=== PATIENT | female | born 2000 | race Two or more races ===

== ENCOUNTER → 2020-01-18 | Emergency (ER) | payer MEDICAID ==
[~2020-01-18] VITALS: Ht 154.9 cm; Wt 64.9 kg
[2020-01-18 15:18] LABS: Urine WBC None Seen /hpf (0 - 5)
[2020-01-18 15:49] LABS: Urine Bacteria NONE SEEN /hpf (None Seen); Urine Blood Negative /uL (Negative); Urine Specific Gravity 1.003 (1.001-1.035)
[2020-01-18 16:15] LABS: Basophils # (auto) 0 10 ^3/uL (0-0.2); Eosinophils # (auto) 0.1 10 ^3/uL (0-0.8); Hemoglobin 12.9 g/dL (12.2-16.2); Lymphocytes # (auto) 1.5 10 ^3/uL (0.4-5.4); Monocytes # (auto) 0.3 10 ^3/uL (0-1.3)
[2020-01-18 16:17] LABS: Basophils % (auto) 0.3 % (0.0-2.0); Eosinophils % (auto) 2.2 % (0.0-7.0); Lymphocytes % (auto) 36.5 % (10.0-50.0); Mean Corpuscular Hemoglobin 26.9 pg (28.0-32.0); Mean Corpuscular Hgb Conc. 32.1 g/dL (32.0-36.0); Mean Corpuscular Volume 83.9 fL (80.0-100.0); Monocytes % (auto) 7.2 % (0.0-12.0); Neutrophils # (auto) 2.3 10 ^3/uL (1.6-8.6); Neutrophils % (auto) 53.8 % (37.0-80.0); Nucleated Red Blood Cells % 0.1 %; Platelet Count (auto) 251 10^3/uL (140-450); Red Blood Cells 4.77 10^6/uL (4.0-5.20); Red Cell Distribution Width 14.8 % (11.8-14.3); White Blood Cell 4.2 10^3/uL (4.4-10.8)
[2020-01-18 16:38] LABS: Albumin 3.9 g/dL (3.4-5.0); BUN/Creatinine Ratio 10.1; Calcium 8.9 mg/dL (8.5-10.1); Potassium 3.8 mmol/L (3.5-5.1)
[2020-01-18 16:41] LABS: Bilirubin, Total 0.4 mg/dL (0.2-1.0); Total Protein 7.9 g/dL (6.4-8.2)
[2020-01-18 17:10] VITALS: BP 108/72
== END | disposition home or self-care (01) ==
LOC: EDUNIT# 14:59 → EDBD 14:59 → ER 14:59
DX: R10.31 Right lower quadrant pain (principal); R11.2 Nausea with vomiting, unspecified
CPT/HCPCS: 36415; 74176; 80053; 81001; 81025; 83690; 85025

== ENCOUNTER → 2020-06-18 | Emergency (ER) | payer MEDICAID ==
[~2020-06-18] VITALS: Ht 157.5 cm; Wt 70.3 kg
[2020-06-18 17:45] VITALS: BP 134/71
== END | disposition left against medical advice (07) ==
LOC: ER 17:41
DX: N89.8 Other specified noninflammatory disorders of vagina (principal); Z53.21 Procedure and treatment not carried out due to patient leaving prior to being seen by health care provider

== ENCOUNTER → 2021-12-06 | Outpatient (CLI) | payer MEDICAID ==
[2021-12-06 10:13] LABS: Alcohol, Urine < 3.0 mg/dL (0-10); Amphetamine Screen, Urine NEGATIVE (NEGATIVE); Barbiturate Scree,Urine NEGATIVE (NEGATIVE); Benzodiazephine Screen, Urine NEGATIVE (NEGATIVE); Cannabinoid Screen, Urine POSITIVE (NEGATIVE); Cocaine Screen, Urine NEGATIVE (NEGATIVE); Opiate Scree,Urine NEGATIVE (NEGATIVE); Phencyclidine Screen, Urine NEGATIVE (NEGATIVE)
[2021-12-06 10:38] LABS: Basophils # (auto) 0 10 ^3/uL (0-0.2); Basophils % (auto) 0.5 % (0.0-2.0); Eosinophils # (auto) 0.1 10 ^3/uL (0-0.8); Eosinophils % (auto) 2.9 % (0.0-7.0); Hematocrit 35.6 % (36.0-46.0); Hemoglobin 12.1 g/dL (12.2-16.2); Lymphocytes # (auto) 1.8 10 ^3/uL (0.4-5.4); Lymphocytes % (auto) 36.6 % (10.0-50.0); Mean Corpuscular Hemoglobin 29.4 pg (28.0-32.0); Mean Corpuscular Volume 86.4 fL (80.0-100.0); Monocytes # (auto) 0.3 10 ^3/uL (0-1.3); Monocytes % (auto) 6.9 % (0.0-12.0); Neutrophils # (auto) 2.6 10 ^3/uL (1.6-8.6); Neutrophils % (auto) 53.1 % (37.0-80.0); Nucleated Red Blood Cells % 0.1 %; Red Blood Cells 4.12 10^6/uL (4.0-5.20); Red Cell Distribution Width 16.2 % (11.8-14.3)
[2021-12-07 07:06] LABS: RPR Non Reactive (Non Reactive)
== END | disposition home or self-care (01) ==
LOC: LAB 08:38
PROVIDERS: ATTEND Obstetrics & Gynecology
DX: Z34.00 Encounter for supervision of normal first pregnancy, unspecified trimester (principal); Z31.430 Encounter of female for testing for genetic disease carrier status for procreative management; N39.0 Urinary tract infection, site not specified
CPT/HCPCS: 36415; 80307; 83036; 84112; 84144; 84702; 85025; 86592; 86703; 86762; 86850; 86900; 86901; 87086; 87340

== ENCOUNTER 2021-12-14 08:31 | Emergency (ER) | payer MEDICAID ==
[~2021-12-14] VITALS: Ht 154.9 cm; Wt 53.5 kg
[2021-12-14] MEDS ORDERED: METOCLOPRAMIDE HCL 5MG/ml INJ 2ml VIAL IV ONE (08:45)
[2021-12-14] MEDS ORDERED: LIDOCAINE VISCOUS 2% 15ML UD PO ONE (08:45)
[2021-12-14] MEDS ORDERED: FAMOTIDINE (10MG/ML) 2ML VL IV ONE (08:45)
[2021-12-14] MEDS ORDERED: PYRIDOXINE HCL 50 MG TAB PO SCH (08:45)
[2021-12-14] MEDS ORDERED: D5W/SOD CHLO 0.9% 1,000 ML IV ONE (08:45)
[2021-12-14] MEDS ORDERED: ALUM & MAG HYDROX-SIMETH LIQ(MAALOX) 30 ML PO ONE (08:45)
[2021-12-14 09:18] LABS: Basophils # (auto) 0 10 ^3/uL (0-0.2); Basophils % (auto) 0.4 % (0.0-2.0); Eosinophils # (auto) 0 10 ^3/uL (0-0.8); Eosinophils % (auto) 0.2 % (0.0-7.0); Hemoglobin 13.3 g/dL (12.2-16.2); Lymphocytes # (auto) 1.2 10 ^3/uL (0.4-5.4); Lymphocytes % (auto) 14.9 % (10.0-50.0); Mean Corpuscular Hemoglobin 28.7 pg (28.0-32.0); Mean Corpuscular Hgb Conc. 33.2 g/dL (32.0-36.0); Mean Corpuscular Volume 86.5 fL (80.0-100.0); Monocytes # (auto) 0.4 10 ^3/uL (0-1.3); Monocytes % (auto) 5.4 % (0.0-12.0); Neutrophils # (auto) 6.5 10 ^3/uL (1.6-8.6); Neutrophils % (auto) 79.1 % (37.0-80.0); Red Blood Cells 4.63 10^6/uL (4.0-5.20); Red Cell Distribution Width 15.8 % (11.8-14.3); White Blood Cell 8.2 10^3/uL (4.4-10.8)
[2021-12-14 09:45] LABS: Albumin 3.7 g/dL (3.4-5.0); BUN/Creatinine Ratio 19.2; Calcium 9.4 mg/dL (8.5-10.1)
[2021-12-14] MEDS ORDERED: cefTRIAXone 1GM/50ML D5W 50 ML IV ONE (09:45)
[2021-12-14 09:48] LABS: Bilirubin, Total 0.4 mg/dL (0.2-1.0); Total Protein 7.6 g/dL (6.4-8.2)
[2021-12-14 10:11] LABS: Urine Bacteria FEW /hpf (None Seen); Urine Blood Negative /uL (Negative); Urine Mucus FEW (None Seen); Urine Specific Gravity 1.039 (1.001-1.035); Urine WBC 18 /hpf (0 - 5)
[2021-12-14] MEDS ORDERED: POTASSIUM CHL 20MEQ/100ML 100 ML IV ONE (10:45)
[2021-12-14] MEDS ORDERED: POTASSIUM CHL 20 Meq TABLET PO ONE (10:45)
[2021-12-14] MEDS ORDERED: CEFP200T15 PO (13:12)
[2021-12-14 13:18] VITALS: BP 116/78
== END 2021-12-14 13:30 | disposition home or self-care (01) ==
LOC: ER 08:31
DX: O21.0 Mild hyperemesis gravidarum (principal); J45.909 Unspecified asthma, uncomplicated; Z3A.01 Less than 8 weeks gestation of pregnancy
CPT/HCPCS: 36415; 80053; 81001; 81025; 82010; 84702; 85025; 96361; 96365; 96375; 99285; J0696; J2765; J3480; J3490; J7040

== ENCOUNTER → 2022-03-30 | Outpatient (CLI) | payer MEDICAID ==
[~2022-03-30] MED LIST: CEFP200T15 PO
[2022-03-30 09:37] LABS: Basophils # (auto) 0 10 ^3/uL (0-0.2); Basophils % (auto) 0.2 % (0.0-2.0); Eosinophils # (auto) 0.1 10 ^3/uL (0-0.8); Eosinophils % (auto) 1.3 % (0.0-7.0); Hemoglobin 10.5 g/dL (12.2-16.2); Lymphocytes # (auto) 1.4 10 ^3/uL (0.4-5.4); Lymphocytes % (auto) 22.2 % (10.0-50.0); Mean Corpuscular Hemoglobin 29.5 pg (28.0-32.0); Mean Corpuscular Volume 89.3 fL (80.0-100.0); Monocytes # (auto) 0.3 10 ^3/uL (0-1.3); Monocytes % (auto) 5.6 % (0.0-12.0); Neutrophils # (auto) 4.3 10 ^3/uL (1.6-8.6); Neutrophils % (auto) 70.7 % (37.0-80.0); Nucleated Red Blood Cells % 0.1 %; Red Blood Cells 3.58 10^6/uL (4.0-5.20); Red Cell Distribution Width 13.1 % (11.8-14.3); White Blood Cell 6.1 10^3/uL (4.4-10.8)
== END | disposition home or self-care (01) ==
LOC: LAB 09:18
PROVIDERS: ATTEND Obstetrics & Gynecology
DX: O99.810 Abnormal glucose complicating pregnancy (principal); Z3A.00 Weeks of gestation of pregnancy not specified
CPT/HCPCS: 36415; 82951; 83036; 85025

== ENCOUNTER → 2022-05-30 | Outpatient (CLI) | payer MEDICAID ==
[~2022-05-30] MED LIST changes: +PREN-96 PO
[2022-05-30 08:32] LABS: Basophils # (auto) 0 10 ^3/uL (0-0.2); Basophils % (auto) 0.6 % (0.0-2.0); Eosinophils # (auto) 0.1 10 ^3/uL (0-0.8); Eosinophils % (auto) 1.6 % (0.0-7.0); Hematocrit 31.2 % (36.0-46.0); Hemoglobin 10.1 g/dL (12.2-16.2); Lymphocytes # (auto) 1.6 10 ^3/uL (0.4-5.4); Mean Corpuscular Hgb Conc. 32.5 g/dL (32.0-36.0); Monocytes # (auto) 0.5 10 ^3/uL (0-1.3); Monocytes % (auto) 7.8 % (0.0-12.0); Neutrophils # (auto) 3.6 10 ^3/uL (1.6-8.6); Nucleated Red Blood Cells % 0.1 %; Red Blood Cells 3.76 10^6/uL (4.0-5.20); Red Cell Distribution Width 14.1 % (11.8-14.3); White Blood Cell 5.8 10^3/uL (4.4-10.8)
[2022-05-31 08:07] LABS: RPR Non Reactive (Non Reactive)
== END | disposition home or self-care (01) ==
LOC: LAB 08:17
PROVIDERS: ATTEND Obstetrics & Gynecology
DX: Z34.00 Encounter for supervision of normal first pregnancy, unspecified trimester (principal); Z3A.00 Weeks of gestation of pregnancy not specified
CPT/HCPCS: 36415; 85025; 86592

== ENCOUNTER 2022-06-06 15:59 | Observation (INO) | payer MEDICAID ==
[~2022-06-06] VITALS: Ht 157.5 cm; Wt 65.8 kg
[~2022-06-06 15:59] MED LIST changes: -PREN-96 PO
[2022-06-06] MEDS ORDERED: PREN-96 PO (20:08)
== END 2022-06-06 20:54 | disposition home or self-care (01) ==
LOC: UNDOADMOB 15:59 → LDRP 15:59 → UNDODISOB 20:54
PROVIDERS: ADMIT Obstetrics & Gynecology; ATTEND Obstetrics & Gynecology
DX: O36.5930 Maternal care for other known or suspected poor fetal growth, third trimester, not applicable or unspecified (principal); O26.893 Other specified pregnancy related conditions, third trimester; N89.8 Other specified noninflammatory disorders of vagina; Z3A.37 37 weeks gestation of pregnancy
CPT/HCPCS: 59025; 76805; 76818; 81002; 94760; G0378

== ENCOUNTER 2022-06-09 16:57 | Observation (INO) | payer MEDICAID ==
[~2022-06-09 16:57] MED LIST changes: +PREN-96 PO
== END 2022-06-09 18:35 | disposition home or self-care (01) ==
LOC: LDRP 16:57
PROVIDERS: ADMIT Obstetrics & Gynecology; ATTEND Obstetrics & Gynecology
DX: O36.5930 Maternal care for other known or suspected poor fetal growth, third trimester, not applicable or unspecified (principal); Z3A.37 37 weeks gestation of pregnancy
CPT/HCPCS: 59025; 76818; 81002; 94760; G0378

== ENCOUNTER 2022-06-13 12:36 | Observation (INO) | payer MEDICAID ==
[~2022-06-13 12:36] MED LIST changes: -CEFP200T15 PO
== END 2022-06-13 17:27 | disposition home or self-care (01) ==
LOC: UNDOADMOB 16:18 → LDRP 16:18
PROVIDERS: ADMIT Obstetrics & Gynecology; ATTEND Obstetrics & Gynecology
DX: O36.5930 Maternal care for other known or suspected poor fetal growth, third trimester, not applicable or unspecified (principal); Z3A.38 38 weeks gestation of pregnancy
CPT/HCPCS: 59025; 76818; 81002; 94760; G0378

== ENCOUNTER 2022-06-17 16:45 | Observation (INO) | payer MEDICAID | END 2022-06-17 17:50 | disposition home or self-care (01) | LOC: LDRP 16:45 | PROVIDERS: ADMIT Obstetrics & Gynecology; ATTEND Obstetrics & Gynecology | DX: O36.5930 Maternal care for other known or suspected poor fetal growth, third trimester, not applicable or unspecified (principal); O99.323 Drug use complicating pregnancy, third trimester; F12.90 Cannabis use, unspecified, uncomplicated; Z3A.38 38 weeks gestation of pregnancy; Z91.040 Latex allergy status | CPT/HCPCS: 59025; 76818; 81002; 94760; G0378 ==

== ENCOUNTER 2022-06-19 09:17 | Inpatient (IN) | payer MEDICAID ==
[~2022-06-19] VITALS: Ht 157.5 cm; Wt 65.8 kg
[2022-06-19] MEDS ORDERED: DERMOPLAST 60ML BOTTLE TOP PRN (09:45)
[2022-06-19] MEDS ORDERED: BUTORPHANOL TARTRATE 2 MG/1 ML VIAL IV PRN ×2 (09:45)
[2022-06-19] MEDS ORDERED: PHISODERM TOP SOLN 240ML BTL TOP PRN (09:45)
[2022-06-19] MEDS ORDERED: LIDOCAINE 2%HCL (LOCAL ANESTH.) INJ 20ML MDV IJ PRN (09:45)
[2022-06-19] MEDS ORDERED: PENICILLIN G POT 5MIL/D5 50ML 50 ML IV ONE (09:45)
[2022-06-19 10:42] LABS: Basophils # (auto) 0 10 ^3/uL (0-0.2); Basophils % (auto) 0.3 % (0.0-2.0); Eosinophils # (auto) 0 10 ^3/uL (0-0.8); Eosinophils % (auto) 0.5 % (0.0-7.0); Hemoglobin 9.9 g/dL (12.2-16.2); Lymphocytes # (auto) 1.3 10 ^3/uL (0.4-5.4); Lymphocytes % (auto) 25.7 % (10.0-50.0); Mean Corpuscular Hemoglobin 27.2 pg (28.0-32.0); Mean Corpuscular Hgb Conc. 34.1 g/dL (32.0-36.0); Mean Corpuscular Volume 79.9 fL (80.0-100.0); Monocytes # (auto) 0.3 10 ^3/uL (0-1.3); Monocytes % (auto) 6.5 % (0.0-12.0); Neutrophils # (auto) 3.4 10 ^3/uL (1.6-8.6); Nucleated Red Blood Cells % 0.1 %; Red Blood Cells 3.62 10^6/uL (4.0-5.20); Red Cell Distribution Width 15.5 % (11.8-14.3); White Blood Cell 5.1 10^3/uL (4.4-10.8)
[2022-06-19 10:43] LABS: Alcohol, Urine < 3.0 mg/dL (0-10); Amphetamine Screen, Urine NEGATIVE (NEGATIVE); Barbiturate Scree,Urine NEGATIVE (NEGATIVE); Benzodiazephine Screen, Urine NEGATIVE (NEGATIVE); Cannabinoid Screen, Urine POSITIVE (NEGATIVE); Cocaine Screen, Urine NEGATIVE (NEGATIVE); Opiate Scree,Urine NEGATIVE (NEGATIVE); Phencyclidine Screen, Urine NEGATIVE (NEGATIVE)
[2022-06-19] MEDS ORDERED: LACT. RINGERS/OXYTOCIN 20UNITS 500 ML IV ONE ×2 (10:45→11:15)
[2022-06-19 10:56] LABS: Albumin 2.4 g/dL (3.4-5.0); Calcium 7.9 mg/dL (8.5-10.1); Potassium 3.4 mmol/L (3.5-5.1)
[2022-06-19] MEDS: LACTATED RINGER'S 1,000 ML IV SCH ×2 (10:56→18:22)
[2022-06-19] MEDS: miSOPROStol 50 MCG per PRE-CUT 1/2 TAB PO PRN ×2 (10:57→21:40)
[2022-06-19] MEDS: WITCH HAZEL-GLYCERIN PAD TOP PRN (10:57)
[2022-06-19 10:58] LABS: Urine Bacteria NONE SEEN /hpf (None Seen); Urine Blood Negative /uL (Negative); Urine Specific Gravity 1.011 (1.001-1.035); Urine WBC 1 /hpf (0 - 5)
[2022-06-19 10:59] LABS: INR 0.91 (0.9-1.15); Partial Thromboplastin Time 28.6 sec (24.6-33.4)
[2022-06-19 11:00] LABS: Bilirubin, Total 0.3 mg/dL (0.2-1.0); Total Protein 6.1 g/dL (6.4-8.2)
[2022-06-19] MEDS: PENICILLIN G POTASSIUM 2,500,000 UNITS in D5W 5% 50 ML IV SCH ×2 (17:52→21:40)
[2022-06-20] MEDS: miSOPROStol 50 MCG per PRE-CUT 1/2 TAB PO PRN (01:46)
[2022-06-20] MEDS: PENICILLIN G POTASSIUM 2,500,000 UNITS in D5W 5% 50 ML IV SCH ×3 (01:47→10:11)
[2022-06-20] MEDS: PROMETHAZINE HCL 25 MG/ML 1ML IV PRN ×2 (05:59→09:56)
[2022-06-20] MEDS ORDERED: TERBUTALINE SULFATE 1 MG/ML 1ML VIAL SC PRN (06:30)
[2022-06-20] MEDS ORDERED: LACT. RINGERS/OXYTOCIN 20UNITS 1,000 ML IV SCH (06:30)
[2022-06-20] MEDS ORDERED: METHYLERGONOVINE MALEATE 0.2 MG/ML AMP IM ONE ×2 (11:09→14:45)
[2022-06-20] MEDS ORDERED: IBUPROFEN 600 MG TAB PO PRN (14:45)
[2022-06-20] MEDS ORDERED: ACETAMINOPHEN 325 MG TAB PO PRN (14:45)
[2022-06-20 15:00] VITALS: BP 133/77
[2022-06-20] MEDS: IBUPROFEN 800 MG TAB PO PRN (15:13)
[2022-06-20 19:30] VITALS: BP 112/85
[2022-06-20] MEDS ORDERED: DOCUSATE SOD 100 MG CAP PO SCH (22:00)
[2022-06-20 23:30] VITALS: BP 120/78
[2022-06-21] MEDS: IBUPROFEN 800 MG TAB PO PRN (02:52)
[2022-06-21 03:05] VITALS: BP 110/65
[2022-06-21 05:06] LABS: RPR Non Reactive (Non Reactive)
[2022-06-21 07:15] VITALS: BP 111/79
[2022-06-21 10:30] VITALS: BP 126/85
[2022-06-21] MEDS: WITCH HAZEL-GLYCERIN PAD TOP PRN (12:29)
== END 2022-06-21 13:30 | disposition home or self-care (01) | DRG 560 ==
LOC: LDRP 09:17
PROVIDERS: ADMIT Obstetrics & Gynecology; ATTEND Obstetrics & Gynecology
PROC: 10E0XZZ Delivery of Products of Conception, External Approach (ICD-10-PCS; principal; 2022-06-20)
PROC: 0HQ9XZZ Repair Perineum Skin, External Approach (ICD-10-PCS; 2022-06-20)
PROC: 0UQMXZZ Repair Vulva, External Approach (ICD-10-PCS; 2022-06-20)
DX: O36.5930 Maternal care for other known or suspected poor fetal growth, third trimester, not applicable or unspecified (principal); Z37.0 Single live birth; J45.909 Unspecified asthma, uncomplicated; O70.0 First degree perineal laceration during delivery; Z20.822 Contact with and (suspected) exposure to COVID-19; O99.52 Diseases of the respiratory system complicating childbirth; O71.82 Other specified trauma to perineum and vulva; Z3A.38 38 weeks gestation of pregnancy
CPT/HCPCS: 36415; 59025; 59409; 80053; 80307; 81001; 81002; 85025; 85610; 85730; 86592; 86850; 86900; 86901; 87426; 94760; 94762; 96360; 96361; 96365; 96366; 96372; 96374; 96375; G0378; J2540; J2590; J7060

== ENCOUNTER → 2023-06-15 | Outpatient (CLI) | payer MEDICAID | END | disposition home or self-care (01) | LOC: LAB 12:53 | PROVIDERS: ATTEND Student in an Organized Health Care Education/Training Program | DX: E11.9 Type 2 diabetes mellitus without complications (principal) | CPT/HCPCS: 36415; 83036 ==

== ENCOUNTER 2024-08-28 06:22 | Emergency (ER) | payer MEDICAID ==
[~2024-08-28] VITALS: Ht 157.5 cm; Wt 66.6 kg
--- NOTE | 2024-08-28 06:45 | ED.PDOC ---
GI ASSESSMENT HPI Comments 23 y/o F, presents to the ED for CC of abdominal pain. Patient states, she has been experiencing epigastric and suprapubic abdominal pain x hours. Patient relays, pain to be sore in nature. Patient comments on, similar symptoms in past with previous . Patient denies abdominal cramping, vaginal cramping, pelvic pain, diarrhea, or fever. No other associated symptoms, modifiers, recent injuries or sick contacts present at this time. Chief Complaint: Abdominal Pain Time Seen by MD: 06:40 Primary Care Provider: SONA Sommer Notes: Nurses Notes, Medications, Allergies Allergies: Coded Allergies: NO KNOWN ALLERGIES (Unverified , 06/06/22) Home Meds Reported Medications Vit W/ Ferrous Fumara ( One Daily) Daily Tab, 1 TAB PO DAILY, #90 TAB 3 Refills 06/06/22 Information Source: Patient Mode of Arrival: Ambulatory Timing: Hours Duration: Since onset Prehospital treatment: None Quality: Other (soreness) Vomitus: Watery Stool: Normal Severity: Moderate Recent: None Recent Hx of: None Pain Location: Epigastric, Suprapubic Modifying Factors: Nothing Associated sign and symptoms: Nausea, Vomiting Past Medical History PAST MEDICAL HISTORY: Asthma, Denies Surgical History: Denies all surgeries Family History Family History: Reviewed,noncontributory to illness, Unknown Social History Smoker: Non-Smoker Alcohol: Denies ETOH Use Drugs: Denies Drug Use Lives In: Home Constitutional: denies: chills, diaphoresis, fatigue, fever, malaise, sweats, weakness, others EENTM: denies: blurred vision, double vision, ear bleeding, ear discharge, ear drainage, ear pain, ear ringing, eye pain, eye redness, hearing loss, mouth pain, mouth swelling, nasal discharge, nose bleeding, nose congestion, nose pain, photophobia, tearing, throat pain, throat swelling, voice changes, others Respiratory: denies: cough, hemoptysis, orthopnea, SOB at rest, shortness of breath, SOB with excertion, stridor, wheezing, others Cardiovascular: denies: chest pain, dizzy spells, diaphoresis, Dyspnea on exertion, edema, irregular heart beat, left arm pain, lightheadedness, palpitations, PND, syncope, others Gastrointestinal: reports: abdominal pain, nausea, vomiting; denies: abdomen distended, blood streaked bowels, constipated, diarrhea, dysphagia, difficulty swallowing, hematemesis, melena, poor appetite, poor fluid intake, rectal bleeding, rectal pain, others Genitourinary: denies: abnormal vagina bleeding, burning, dyspareunia, dysuria, flank pain, frequency, hematuria, incontinence, pain, , vagina discharge, urgency, others Neurological: denies: dizziness, fainting, headache, left sided numbness, left sided weakness, numbness, paresthesia, pre-existing deficit, right sided numbness, right sided weakness, seizure, speech problems, tingling, tremors, weakness, others Musculoskeletal: denies: back pain, gout, joint pain, joint swelling, muscle pain, muscle stiffness, neck pain, others Integumetry: denies: bruises, change in color, change in hair/nails, dryness, laceration, lesions, lumps, rash, wounds, others Allergic/Immunocompromised: denies: Difficulty Healing, Frequent Infections, Hives, Itching, others Hematologic/Lymphatic: denies: anemia, blood clots, easy bleeding, easy bruising, swollen glands, others Endocrine: denies: excessive hunger, excessive sweating, excessive thirst, excessive urination, flushing, intolerance to cold, intolerance to heat, unexplained weight gain, unexplained weight loss, others Psychiatric: denies: anxiety, bipolar disorder, depression, hopeless, panic disorder, schizophrenia, sleepless, suicidal, others All Other Systems: Reviewed and Negative Physical Exam General Appearance: No Apparent Distress, Normal HEENT: Head, Normal ENT Inspection, Other (atraumatic, normocephalic, non- icteric. dry chapped lips) Neck: Full Range of Motion, Non-Tender, Normal, Normal Inspection Respiratory: Chest Non-Tender, Lungs Clear, No Accessory Muscle Use, No Respiratory Distress, Normal Breath Sounds Cardiovascular: No Edema, No Murmur, No Gallop, Normal Peripheral Pulses, Regular Rate/Rhythm Breast Exam: Deferred Gastrointestinal: Epigastric (mild tenderness), Normal Bowel Sounds, Suprapubic (tenderness), Other (gravid) Genitalia: Deferred Pelvic: Deferred Rectal: Deferred Extremities: No calf tenderness, Normal capillary refill, Normal inspection, Normal range of motion, Non-tender, No pedal edema Musculoskeletal : Apperance: Normal Neurologic: Alert, 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 Was a procedure done?: No GI differential Dx Differential Diagnosis: Gastritis/PUD, Gastroenteritis, Electrolyte Imbalance, Food Poisoning, , Bacterial, Viral, Other (reflux ) X-Ray, Labs, Meds, VS Vital Signs Date Time Temp Pulse Resp B/P (MAP) Pulse Ox O2 Delivery O2 Flow Rate FiO2 08/28/24 08:13 85 14 99 Room Air* 0 21 08/28/24 07:51 97.8 83 18 106/64 (78) 98 97.8 08/28/24 07:51 83 18 98 Room Air 08/28/24 06:32 98.7 112 16 122/63 (82) 98 Lab Test 08/28/24 07:05 08/28/24 06:50 Range/Units Urine Color Colorless Yellow Urine Clarity Turbid H Clear Urine pH 7.0 5.0-9.0 Urine Specific [place] 1.001 1.001-1.035 Urine Protein Negative Negative Urine Ketones Negative Negative Urine Blood Negative Negative /uL Urine Nitrite Negative Negative Urine Bilirubin Negative Negative Urine Urobilinogen Normal Negative mg/dL Urine Leukocyte Esterase 2+ Negative /uL Urine RBC 12 0 - 4 /hpf Urine Microscopic WBC 2 0-5 /HPF Urine Squamous Epithelial Cells Few <5 /hpf Urine Bacteria Few H None Seen /hpf Urine Glucose Normal Normal mg/dL White Blood Count 5.9 4.4-10.8 10^3/uL Red Blood Count 4.06 4.0-5.20 10^6/uL Hemoglobin 10.6 L 12.2-16.2 g/dL Hematocrit 32.6 L 36.0-46.0 % Mean Corpuscular Volume 80.4 80.0-100.0 fL Mean Corpuscular Hemoglobin 26.0 L 28.0-32.0 pg Mean Corpuscular Hemoglobin Concent 32.4 32.0-36.0 g/dL Red Cell Distribution Width 17.0 H 11.8-14.3 % Platelet Count 220 140-450 10^3/uL Mean Platelet Volume 8.4 6.9-10.8 fL Neutrophils (%) (Auto) 61.4 37.0-80.0 % Lymphocytes (%) (Auto) 28.4 10.0-50.0 % Monocytes (%) (Auto) 6.1 0.0-12.0 % Eosinophils (%) (Auto) 3.7 0.0-7.0 % Basophils (%) (Auto) 0.4 0.0-2.0 % Neutrophils # (Auto) 3.6 1.6-8.6 10 ^3/uL Lymphocytes # (Auto) 1.7 0.4-5.4 10 ^3/uL Monocytes # (Auto) 0.4 0-1.3 10 ^3/uL Eosinophils # (Auto) 0.2 0-0.8 10 ^3/uL Basophils # (Auto) 0 0-0.2 10 ^3/uL Nucleated Red Blood Cells 0.0 % Sodium Level 138 136-145 mmol/L Potassium Level 3.7 3.5-5.1 mmol/L Chloride Level 107 98-107 mmol/L Carbon Dioxide Level 24 20-31 mmol/L Anion Gap 7 5-15 Blood Urea Nitrogen 5 L 9-23 mg/dL Creatinine 0.57 0.550-1.02 mg/dL Glomerular Filtration Rate Calc 131 >90 mL/min BUN/Creatinine Ratio 8.8 L 10.0-20.0 Serum Glucose 90 74-106 mg/dL Calcium Level 9.1 8.7-10.4 mg/dL Total Bilirubin 0.3 0.2-1.0 mg/dL Aspartate Amino Transferase (AST) 11 L 13-40 U/L Alanine Aminotransferase (ALT) < 9 7-40 U/L Alkaline Phosphatase 50 46-116 U/L Total Protein 6.7 5.7-8.2 g/dL Albumin 4.2 3.2-4.8 g/dL Beta HCG, Quantitative 98194.4 H 1.5-4.2 mIU/mL Current Medications Medications (Trade) Dose Ordered Sig/Marissa Route Start Time Stop Time Status Last Admin Metoclopramide HCl (Reglan Injection) 10 mg ONCE ONCE IV 08/28/24 06:30 08/28/24 06:36 DC 08/28/24 08:07 Sodium Chloride 1,000 ml @ 1,000 mls/hr Q1H ONCE IV 08/28/24 06:30 08/28/24 07:29 DC 08/28/24 08:07 X-Ray, Labs, Meds, VS Comment This 23-year-old female at 12 weeks gestation for dates per patient presents secondary to suprapubic abdominal pain with nausea and vomiting. She states this is consistent with her previous where she had difficulty keeping anything down. Here, the patient was workup was benign including relatively benign labs and a normal ultrasound. The patient was discharged home with a prescription for diclegis. She was asked to follow up with the PCP and OBGYN for further workup management for hyperemesis gravidarum. Time of 1ST Reevaluation: 07:20 Reevaluation 1ST: Unchanged Time of 2ND Reevaluation: 08:41 Reevaluation 3RD: Improved Consultation: PCP Patient Education/Counseling: Diagnosis, Treatment Family Education/Counseling: No Family Present Departure 1 Departure Time of Disposition: 08:36 Impression: Primary Impression: Gastritis Additional Impression: Hyperemesis gravidarum Disposition: 01 HOME / SELF CARE / HOMELESS Condition: Good Discharged With: Self Critical Care Note Critical Care Time?: No Stability Stability form required: No Heart Score Heart Score: Heart Score Response (Comments) Value History N/A 0 EKG N/A 0 Age N/A 0 Risk Factors N/A 0 Troponin N/A 0 Total 0 I personally scribed for HARSH LEBLANC MD ([email or web address]) on 08/28/24 at 06:45. Electronically submitted by Apple Alex ([email or web address]). I personally scribed for HARSH LEBLANC MD ([email or web address]) on 08/28/24 at 06:48. Electronically submitted by Apple Alex ([email or web address]). HARSH LEBLANC MD Aug 28, 2024 06:45
[2024-08-28 07:23] LABS: Basophils # (auto) 0 10 ^3/uL (0-0.2); Eosinophils # (auto) 0.2 10 ^3/uL (0-0.8); Lymphocytes # (auto) 1.7 10 ^3/uL (0.4-5.4); Lymphocytes % (auto) 28.4 % (10.0-50.0); Mean Corpuscular Volume 80.4 fL (80.0-100.0); White Blood Cell 5.9 10^3/uL (4.4-10.8)
[2024-08-28 07:27] LABS: Basophils % (auto) 0.4 % (0.0-2.0); Eosinophils % (auto) 3.7 % (0.0-7.0); Hematocrit 32.6 % (36.0-46.0); Hemoglobin 10.6 g/dL (12.2-16.2); Mean Corpuscular Hgb Conc. 32.4 g/dL (32.0-36.0); Monocytes # (auto) 0.4 10 ^3/uL (0-1.3); Monocytes % (auto) 6.1 % (0.0-12.0); Neutrophils # (auto) 3.6 10 ^3/uL (1.6-8.6); Neutrophils % (auto) 61.4 % (37.0-80.0); Platelet Count (auto) 220 10^3/uL (140-450); Red Blood Cells 4.06 10^6/uL (4.0-5.20)
[2024-08-28 07:29] LABS: Albumin 4.2 g/dL (3.2-4.8); Alkaline Phosphatase 50 U/L (46-116); Anion Gap 7 (5-15); BUN/Creatinine Ratio 8.8 (10.0-20.0); Calcium 9.1 mg/dL (8.7-10.4); Carbon Dioxide 24 mmol/L (20-31); Glucose 90 mg/dL (74-106); Potassium 3.7 mmol/L (3.5-5.1); Sodium 138 mmol/L (136-145); Total Protein 6.7 g/dL (5.7-8.2)
[2024-08-28 07:34] LABS: Alanine Aminotransferase < 9 U/L (7-40); Aspartate Aminotransferase 11 U/L (13-40); Bilirubin, Total 0.3 mg/dL (0.2-1.0); Blood Urea Nitrogen 5 mg/dL (9-23); Chloride 107 mmol/L (98-107)
[2024-08-28 07:51] VITALS: BP 106/64; TEMP 97.8
[2024-08-28 08:02] LABS: Urine Bacteria FEW /hpf (None Seen); Urine Blood Negative /uL (Negative); Urine Clarity Turbid (Clear); Urine Color Colorless (Yellow); Urine Protein, UAD Negative (Negative); Urine Specific Gravity 1.001 (1.001-1.035); Urine Squamous Epithelial Cell FEW /hpf (<5); Urine Urobilinogen Normal (Negative); Urine WBC 2 /HPF (0-5)
--- NOTE | 2024-08-28 08:06 | DVH ---
OB ULTRASOUND <14 WEEKS: HISTORY: suprapubic pain at 12 weeks GA TECHNIQUE: Multiple real-time grayscale sonographic images of the pelvis with duplex Doppler color f low, spectral and M-mode analysis. TRANSDUCERS: Transabdominal FINDINGS: The uterus measures 10.4 x 10.8 x 6.8 cm. The cervix not well visualized. Right ovary measures 4.5 x 2.2 x 1.8 cm with normal Doppler color flow Left ovary is not well visualized due to obscuration from bowel gas. IUP single live fetus at 13 weeks 0 days average ultrasound age based on mean crown-rump length of 6. 6 cm and gestational sac size of 6.4 cm heart rate detected at 156 beats per minute. IMPRESSION: IUP single live fetus 13 weeks 0 days AUA corresponding to an INGRID of 03/05/2025. No acute abnormality detected.
[2024-08-28] MEDS: SODIUM CHLORIDE 0.9% 1,000 ML IV ONE (08:07)
[2024-08-28] MEDS: METOCLOPRAMIDE HCL 5MG/ml INJ 2ml VIAL IV ONE (08:07)
[2024-08-28 08:13] VITALS: PULSE 85; RESP 14; O2SAT 99
[2024-08-28] MEDS ORDERED: DOXY10TA OR (08:45)
== END 2024-08-28 08:52 | disposition home or self-care (01) ==
LOC: ER 06:22
DX: O21.0 Mild hyperemesis gravidarum (principal); O99.611 Diseases of the digestive system complicating pregnancy, first trimester; R10.2 Pelvic and perineal pain; K29.70 Gastritis, unspecified, without bleeding; O99.511 Diseases of the respiratory system complicating pregnancy, first trimester; J45.909 Unspecified asthma, uncomplicated; Z3A.13 13 weeks gestation of pregnancy
CPT/HCPCS: 36415; 76801; 80053; 81001; 84702; 85025; 96361; 96374; 99285; J2765; J7030

== ENCOUNTER 2025-02-28 01:31 | Inpatient (IN) | payer MEDICAID ==
[~2025-02-28] VITALS: Ht 157.5 cm; Wt 63.5 kg
[~2025-02-28 01:31] MED LIST changes: +DOXY10TA OR
[2025-02-28] MEDS ORDERED: NALBUPHINE HCL 10 MG/1ml INJECTION IV PRN (02:00)
--- NOTE | 2025-02-28 02:28 | DVHHP2 ---
OB CC & HPI Date Date of Admission: Feb 28, 2025 Patient Identification: : 2 Para: 1 EDC: Mar 01, 2025 EGA: 39w6d Chief Complaints: Reason for admission: active labor History of Present Complaints Nicky Riley is a 24 year old presenting to [facility] for r/o labor. Patient states she lost her mucus plug at 0100 and is now feeling contractions 10/10 pain every 2-3 minutes. Denies leaking fluid and states positive movement. Had a headache yesterday, but was resolved with tylenol. Also states she started feeling nauseous yesterday. She vomited a couple times and is coughing as a dry heave response to the N/V Past Medical History Cardiac: No pertinent Hx Pulmonary: Asthma (childhood) Central Nervous System: No pertinent Hx GI: No pertinent Hx Hemotology/Oncology: No pertinent Hx Hepatobiliary: No pertinent Hx Psychiatric: No pertinent Hx Musculoskeletal: No pertinent Hx Rheumotologic: No pertinent Hx Infectious Disease: No peritnent Hx ENT: No pertinent Hx Renal/: No pertinent Hx Endocrine: No pertinent Hx Dermatology: No pertinent Hx Past Surgical History: No pertinent Hx OB History OB History Care: Good Care Ultrasounds: Normal mid trimester US Obstetrical Complications: None ( x 1) Medical Complications: None Allergies: Coded Allergies: NO KNOWN ALLERGIES (Unverified , 06/06/22) Home Meds Active Scripts Doxylamine-Pyridoxine (DICLEGIS) 1 Tab Tab, 1 TAB OR QID PRN, #30 TAB Prov:HARSH LEBLANC MD 08/28/24 Reported Medications Vit W/ Ferrous Fumara ( One Daily) Daily Tab, 1 TAB PO DAILY, #90 TAB 3 Refills 06/06/22 Current Medications Current Medications Medications (Trade) Dose Ordered Sig/Marissa Route PRN Reason Start Time Stop Time Status Last Admin Lactated Ringer's 1,000 ml @ 125 mls/hr Q8H IV 02/28/25 02:00 Nalbuphine HCl (Nubain) 10 mg Q4HP PRN IV MODERATE PAIN (4-6 PAIN SCALE) 02/28/25 02:00 Witch Arlyn (Tucks) 1 pad PRN PRN TOP PERINEAL AREA DISCOMFORT 02/28/25 02:00 Sodium Lauryl Sulfate (Phisoderm) 240 ml PRN PRN TOP PERINEAL AREA DISCOMFORT 02/28/25 02:00 Benzocaine (Dermoplast) 1 applic PRN PRN TOP PERINEAL AREA DISCOMFORT 02/28/25 02:00 Lidocaine HCl (Xylocaine) 40 ml ONCE PRN IJ PERINEAL AREA DISCOMFORT 02/28/25 02:00 Family & Social History Family/Social History Past Family/Social History: Fam Hx: denies Social Hx: pos THC on 02/05/25 Blood Type: A+ Rubella: not immune RPR/VDRL: Negative GBS Status: Negative HBsAG: Negative Review of Systems Constitutional: No symptom reported Ears, Nose, & Throat: No symptom reported Pulmonary/Respiratory: Cough Cardiovascular: No symptom reported Gastrointestinal: Nausea Genitourinary: No symptom reported Musculoskeletal: No symptom reported Skin: No symptom reported Psychiatric: Anxiety Endocrine: No symptom reported Hemotologic/Lymphatic: No symptom reported OB Admission Exam Physical Exam Vitals: VSS. See CPN HEENT: Nasal Mucosa Normal, Eyes non-injected, Oropharynx Normal, PERRLA, Moist Membranes Heart: Rhythm Normal Lungs: Clear Abdomen: Gravid (EFW: 3075g by guillermo) Extremities: Normal Reflexes: Normal Cervical Dilatation: 6cm Station: -1 Membranes: Intact Accelerations: Accelerations Present Short Term Variability: Present Residential Variability: Average (6-25) Contractions on Admission: < 5 Minutes Apart Intensity: Moderate OB Plan Plan Admitting Diagnosis: Onset of Labor Plan: Expectant Management Other Plan: ASSESSMENT: -24 yo at 39w6d -active labor -category 1 tracing -GBS negative -hx: asthma -Rubella Non-Immune PLAN: -Plan of care and plan discussed with patient. Process, Risks, benefits, of available management options discussed, including starting with expectant management, augmentation if indicated, Internal monitoring of UCs & FHT, AROM, amnioinfusion etc only when indicated. Patient agrees to starting with expectant management at this time, as she desires as natural a as possible; other interventions as indicated. Informed Consent obtained -Consent for possible blood transfusion obtained. -All questions and concerns answered. -Admit to Place for Labor with routine L&D Admission orders -EFM per policy. OK to be intermittent per protocol, if FHR tracing is reactive and category 1 -Encourage ambulation and exercises / frequent position change to facilitate labor & descent -Supportive care as needed -hx asthma: team aware that hemabate contraindicated -rubella: NI. Offer MMR immunization -Re-assess cervix in 6 hours to evaluate need for augmentation. Anticipate normal spontaneous vaginal delivery Visit Coding OBGYN Date of Service: Feb 28, 2025 Billing Provider: ROBINA GEIGER CNM CULTURE MANAGER Common Visit Codes: 42009-HGZUSFM OBS CARE (HIGH) CULTURE MANAGER Procedure Codes: 85687-41- NON-STRESS TEST ROBINA GEIGER CNM Feb 28, 2025 02:28
[2025-02-28 02:44] LABS: Hematocrit 33.4 % (36.0-46.0); Hemoglobin 10.9 g/dL (12.2-16.2); Mean Corpuscular Hemoglobin 24.7 pg (28.0-32.0); Mean Corpuscular Volume 75.9 fL (80.0-100.0); Nucleated Red Blood Cells % 0.0 %
[2025-02-28 02:59] LABS: INR 0.92 (0.9-1.15); Partial Thromboplastin Time 31.0 SEC (24.5-34.5); Prothrombin Time 9.8 sec (9.3-11.8)
[2025-02-28 03:04] LABS: Alanine Aminotransferase 12 U/L (7-40); Albumin 3.8 g/dL (3.2-4.8); Anion Gap 13 (5-15); BUN/Creatinine Ratio 13.0 (10.0-20.0); Bilirubin, Total 0.4 mg/dL (0.2-1.0); Carbon Dioxide 20 mmol/L (20-31); Chloride 104 mmol/L (98-107); Glucose 92 mg/dL (74-106); Sodium 137 mmol/L (136-145); Total Protein 6.9 g/dL (5.7-8.2)
[2025-02-28 03:09] LABS: Alkaline Phosphatase 240 U/L (46-116); Blood Urea Nitrogen 9 mg/dL (9-23); Calcium 8.4 mg/dL (8.7-10.4); Potassium 3.3 mmol/L (3.5-5.1)
[2025-02-28] MEDS: WITCH HAZEL-GLYCERIN PAD TOP PRN (03:27)
[2025-02-28] MEDS: DERMOPLAST 60ML BOTTLE TOP PRN (03:29)
[2025-02-28] MEDS: PHISODERM TOP SOLN 240ML BTL TOP PRN (03:29)
[2025-02-28] MEDS: LACT. RINGERS/OXYTOCIN 20UNITS 500 ML IV ONE ×2 (03:33→03:35)
--- NOTE | 2025-02-28 03:44 | LDN2 ---
Labor and Delivery Note Date 02/28/25 Age 24 2 Para 1->2 EDC 03/01/25 EGA 39w6d Diagnosis -Active labor, expectant management - at 39w6d -Nuchal cord x1 -R labial laceration Vaginal Delivery: VTX Vacuum Assisted: No Placenta: Spontaneous (irma) Sex: Male Weight 3120g / 6lbs, 14oz Apgars 8/9 Nuchal Cord Transected: Yes Amniotic Fluid: Meconium Stained Anesthesia local lidocaine Episiotomy: No Extension: No Repaired with R labial repaired with 4-0 monocryl PS-1 EBL 100 mL in drape Labs Laboratory Tests 12/06/21 08:50: Hepatitis B Surface Antigen Negative, HIV (1&2) Antibody Negative, Rubella Antibody Positive Blood Bank 06/19/22 09:58: Blood Type A POSITIVE Comments/Significant Med Luisana At 0258 this 24yo now delivered a viable male by w/ APGARS 8/9. MONICA. loose nuchal x1 reduced prior to delivery. immediately placed skin to skin on pts chest. Cord clamped and cut by FOB after 3 minutes. Cord blood sent per protocol (maternal blood type: A+). Intact 3-vessel cord and intact placenta (Irma), delivered spontaneously Pitocin IV bolus started. Placenta sent to pathology. Cervix inspected and intact. R labial laceration present which was repaired with 4-0 PS-1 suture in the usual fashion. Small vaginal laceration noted, hemostatic. Discussed repair vs not repairing with patient. Patient states to not repair it if it is not bleeding. Rectal mucosa and sphincter intact. Fundus at U, firm, midline, and light lochia. QBL 100ml. VSS. Count correct x2. Patient to care and baby to couplet care, both stable. Visit Coding OBGYN Date of Service: Feb 28, 2025 Billing Provider: ROBINA GEIGER CNM CHIEF OPERATING OFFICER Common Visit Codes: [id number] OBS CARE (HIGH) CHIEF OPERATING OFFICER Procedure Codes: 95305-ROI DELIVERY ONLY ROBINA GEIGER CNM Feb 28, 2025 03:44
[2025-02-28] MEDS ORDERED: ONDANSETRON HCL 4 MG/2 ML VIAL IV PRN (04:30)
[2025-02-28] MEDS: IBUPROFEN 600 MG TAB PO PRN (04:50)
[2025-02-28] MEDS: LIDOCAINE 2%HCL (LOCAL ANESTH.) INJ 20ML MDV IJ PRN (04:50)
[2025-02-28 06:10] LABS: Urine Protein, UAD 1+ (Negative)
[2025-02-28 06:13] LABS: Cannabinoid Screen, Urine Pos (NEGATIVE); Cocaine Screen, Urine Neg (NEGATIVE)
[2025-02-28 06:14] LABS: Amphetamine Screen, Urine Neg (NEGATIVE); Barbiturate Scree,Urine Neg (NEGATIVE); Benzodiazephine Screen, Urine Neg (NEGATIVE); Opiate Scree,Urine Neg (NEGATIVE); Phencyclidine Screen, Urine Neg (NEGATIVE)
[2025-02-28 06:30] VITALS: BP 111/75; PULSE 78; RESP 16; TEMP 98.4; O2SAT 98
[2025-02-28] MEDS: ACETAMINOPHEN 325 MG TAB PO PRN (07:07)
[2025-02-28] MEDS: POTASSIUM CHL 20 Meq TABLET PO ONE (07:07)
[2025-02-28] MEDS: LACTATED RINGER'S 1,000 ML IV SCH (09:22)
[2025-02-28 11:29] VITALS: BP 119/79; PULSE 67; RESP 16; TEMP 98; O2SAT 98
[2025-02-28 15:00] VITALS: BP 128/82; PULSE 69; TEMP 98.4; O2SAT 99
[2025-02-28 19:00] VITALS: BP 117/71; PULSE 75; TEMP 98.4; O2SAT 97
[2025-02-28] MEDS: DOCUSATE SOD 100 MG CAP PO SCH (22:06)
[2025-02-28 23:00] VITALS: BP 117/76; PULSE 64; RESP 18; TEMP 98.2; O2SAT 97
[2025-03-01 03:00] VITALS: BP 130/80; PULSE 63; RESP 16; TEMP 98; O2SAT 97
--- NOTE | 2025-03-01 06:02 | DVHPN2 ---
Progress Note Date Seen: Mar 01, 2025 Subjective S: Lochia minimal Tolerating regular diet well. Ambulating and voiding well w/o feeling lightheaded or dizzy. Passing flatus but no BM yet. Breast feeding. Contraceptive plan: Desires and requests to be discharged home today Lochia minimal Tolerating regular diet well. Ambulating and voiding well w/o feeling lightheaded or dizzy. Passing flatus but no BM yet. Breast feeding. Contraceptive plan: Desires and requests to be discharged home today vital signs Vital Sign Date Time Temp Pulse Resp B/P (MAP) Pulse Ox O2 Delivery O2 Flow Rate FiO2 03/01/25 03:00 98.0 63 16 130/80 (97) 97 98.0 02/28/25 19:00 Room Air Total Intake and Output 02/28/25 02/28/25 03/01/25 15:00 23:00 07:00 Output Total 1650 ml Balance -1650 ml medications Current Medications Medications Dose Ordered Sig/Marissa Route Start Time Stop Time Status Last Admin Dose Admin Nalbuphine HCl 10 mg Q4HP PRN IV 02/28/25 02:00 Cancel Witch Arlyn 1 pad PRN PRN TOP 02/28/25 02:00 03/01/25 00:57 1 PAD Sodium Lauryl Sulfate 240 ml PRN PRN TOP 02/28/25 02:00 02/28/25 03:29 240 ML Benzocaine 1 applic PRN PRN TOP 02/28/25 02:00 03/01/25 00:58 1 APPLIC Ibuprofen 600 mg Q6HP PRN PO 02/28/25 04:30 02/28/25 22:06 600 MG Acetaminophen 650 mg Q4HP PRN PO 02/28/25 04:30 02/28/25 07:07 650 MG Ondansetron HCl 4 mg Q4HP PRN IV 02/28/25 04:30 Docusate Sodium 200 mg HS PO 02/28/25 22:00 02/28/25 22:06 200 MG laboratory and microbiology Laboratory Tests 02/28/25 02:23 Test 02/28/25 02:23 Range/Units Serum Glucose 92 74-106 mg/dL Objective A&O x3 NAD. Afebrile, VSS Chest: heart and lung sounds normal. Breasts: Nipples intact w/o cracks or soreness Abdomen: normal BS, soft, non-tender, no rebound or guarding, fundus firm @ U- 1, lochia minimal Perineum:- no edema, or erythema, laceration site with sutures intact, edges in good approximation. Extremities: no edema or tenderness Lochia - minimal Assessment/Plan 24 yo now ppd#1 s/p , doing well. Anemia. Rubella NI. h/o Asthma Blood Type: A Rh: Positive Breast feeding Rubella Non Immune; Offer MMR vaccine Pain control with oral medications Bowel regimen: Increase fluid intake and fiber in diet, Laxative PRN PP BCM Plan: Undecided Discharge plan: May discharge home later today if condition remains stable Plan discussed with: Patient, Spouse Visit Coding OBGYN Date of Service: Mar 01, 2025 Billing Provider: JADEN NELSON CNM MOTOR EQUIPMENT SERGEANT Common Visit Codes: [id number] INP/OBS CARE(HIGH) JADEN NELSON CNM Mar 01, 2025 06:01
--- NOTE | 2025-03-01 06:22 | DVHDS2 ---
Discharge Summary Date of Admission Feb 28, 2025 at 01:50 Date of Discharge: Mar 01, 2025 Admitting Diagnosis <> IUP @ 39w 6d <> Onset of labor <> GBS Neg <> Anemia <> Rubella NI <> H/o Asthma Labs/Diagnostic Data: Laboratory Results Test 02/28/25 05:25 02/28/25 02:23 Urine Color Yellow (Yellow) Urine Clarity Clear (Clear) Urine pH 7.0 (5.0-9.0) Urine Specific [place] 1.027 (1.001-1.035) Urine Protein 1+ (Negative) Urine Ketones 3+ (Negative) Urine Blood 3+ /uL (Negative) Urine Nitrite Negative (Negative) Urine Bilirubin Negative (Negative) Urine Urobilinogen 2 mg/dL (Negative) Urine Leukocyte Esterase Negative /uL (Negative) Urine RBC 805 /hpf (0 - 4) Urine Microscopic WBC 1 /HPF (0-5) Urine Squamous Epithelial Cells Few /hpf (<5) Urine Bacteria None seen /hpf (None Seen) Urine Mucus Few (None Seen) Urine Glucose Normal mg/dL (Normal) Urine Opiates Screen Neg (NEGATIVE) Urine Fentanyl Screen Neg (NEGATIVE) Urine Barbiturates Screen Neg (NEGATIVE) Urine Phencyclidine Screen Neg (NEGATIVE) Urine Amphetamines Screen Neg (NEGATIVE) Urine Benzodiazepines Screen Neg (NEGATIVE) Urine Cocaine Screen Neg (NEGATIVE) Urine Cannabinoids Screen Pos (NEGATIVE) White Blood Count 4.5 10^3/uL (4.4-10.8) Red Blood Count 4.40 10^6/uL (4.0-5.20) Hemoglobin 10.9 g/dL (12.2-16.2) Hematocrit 33.4 % (36.0-46.0) Mean Corpuscular Volume 75.9 fL (80.0-100.0) Mean Corpuscular Hemoglobin 24.7 pg (28.0-32.0) Mean Corpuscular Hemoglobin Concent 32.6 g/dL (32.0-36.0) Red Cell Distribution Width 18.1 % (11.8-14.3) Platelet Count 199 10^3/uL (140-450) Mean Platelet Volume 8.3 fL (6.9-10.8) Neutrophils (%) (Auto) 71.3 % (37.0-80.0) Lymphocytes (%) (Auto) 19.6 % (10.0-50.0) Monocytes (%) (Auto) 8.5 % (0.0-12.0) Eosinophils (%) (Auto) 0.1 % (0.0-7.0) Basophils (%) (Auto) 0.5 % (0.0-2.0) Neutrophils # (Auto) 3.2 10 ^3/uL (1.6-8.6) Lymphocytes # (Auto) 0.9 10 ^3/uL (0.4-5.4) Monocytes # (Auto) 0.4 10 ^3/uL (0-1.3) Eosinophils # (Auto) 0 10 ^3/uL (0-0.8) Basophils # (Auto) 0 10 ^3/uL (0-0.2) Nucleated Red Blood Cells 0.0 % Prothrombin Time 9.8 sec (9.3-11.8) Prothrombin Time INR 0.92 (0.9-1.15) Activated Partial Thromboplast Time 31.0 SEC (24.5-34.5) Sodium Level 137 mmol/L (136-145) Potassium Level 3.3 mmol/L (3.5-5.1) Chloride Level 104 mmol/L (98-107) Carbon Dioxide Level 20 mmol/L (20-31) Anion Gap 13 (5-15) Blood Urea Nitrogen 9 mg/dL (9-23) Creatinine 0.69 mg/dL (0.550-1.02) Glomerular Filtration Rate Calc 124 mL/min (>90) BUN/Creatinine Ratio 13.0 (10.0-20.0) Serum Glucose 92 mg/dL (74-106) Calcium Level 8.4 mg/dL (8.7-10.4) Total Bilirubin 0.4 mg/dL (0.2-1.0) Aspartate Amino Transferase (AST) 25 U/L (13-40) Alanine Aminotransferase (ALT) 12 U/L (7-40) Alkaline Phosphatase 240 U/L (46-116) Total Protein 6.9 g/dL (5.7-8.2) Albumin 3.8 g/dL (3.2-4.8) Treponema pallidum Antibody Non-reactive (Negative) Hepatitis C Antibody Negative (Negative) Other Laboratory Tests 02/28/25 02:23 Brief Hx & Hospital Course: Ms Riley was admitted on 02/28/25 at 39w 6d EGA for spontaneous onset of labor. Patient had an uneventful labor. She progressed to 2nd stage of labor and had a , had right labial laceration, same repaired. ( See Delivery Note for details) Normal course; meeting milestones w/o any problem or complications. Operations or Procedures Repair of laceration Condition at Discharge: Good Final Diagnosis/Problems List Term - Delivered Right labial laceration Anemia Secondary Diagnosis: Anemia Discharge Disposition: Home Discharge Instruct/Medications Diet: Regular Diet comment: Routine regular diet rich in fiber, protein, iron and vitamin C with adequate fluid intake. Activity: No Restrictions, As Tolerated Activity comment: Unrestricted. Advance as tolerated. Balance activities with rest periods No heavy lifting, pushing or straining. Pelvic rest x 6weeks Follow Up/Referral: Follow up with OB Provider in 1 -2 weeks Medications: Ibuprofen 600mg every 6 hours as needed for pain. Continue Vitamin and iron Scheduled Vit W/ Ferrous Fumara ( One Daily), 1 TAB PO DAILY, (Reported) Scheduled PRN Doxylamine-Pyridoxine (Diclegis), 1 TAB OR QID PRN Discharge Statement: self care instructions given. emergency signs and symptoms including but not limited to pre-eclampsia precautions and signs of infection, PPH & of PPD reviewed with patient. Follow up with OB Provider in 1 -2weeks "Patient was advised to return to the ER or call 911 if any headaches, dizziness, shortness of breath, chest pain, abdominal pain, bleeding, fevers, or worsening of medical condition. Patient was counseled about treatment plan, medications, possible side effects, patientverbalized understanding. All questions were answered to the best of my ability. This discharge took greater then 30 minutes in planning, reviewing documentation, counseling the patient, and discussing with other team members." ASSESSMENT ASSESSMENT Hospital Course Ms Riley was admitted on 02/28/25 at 39w 6d EGA for spontaneous onset of labor. Patient had an uneventful labor. She progressed to 2nd stage of labor and had a , had right labial laceration, same repaired. ( See Delivery Note for details) Normal course; meeting milestones w/o any problem or complications. Assessment <> Term - delivered <> Anemia <> h/o Asthma Visit Coding OBGYN Date of Service: Mar 01, 2025 Billing Provider: JADEN NELSON CNM [employer] Common Visit Codes: [id number] INP/OBS CARE(HIGH) JADEN NELSON CNM Mar 01, 2025 06:22
[2025-03-01 06:51] VITALS: BP 118/74; PULSE 60; RESP 12; TEMP 98; O2SAT 98
[2025-03-01 11:20] VITALS: BP 125/76; PULSE 76; RESP 12; TEMP 98.4; O2SAT 98
[2025-03-01 15:15] VITALS: BP 119/72; PULSE 65; RESP 16; TEMP 98.1; O2SAT 98
== END 2025-03-01 15:44 | disposition home or self-care (01) | DRG 560 ==
LOC: UNDOADMOB 01:31 → LDRP 01:31 → OBSVTOIN 01:50 → INTOOBSV 01:50 → LDRP 01:50
PROVIDERS: ADMIT Obstetrics & Gynecology; ATTEND Obstetrics & Gynecology
PROC: 10E0XZZ Delivery of Products of Conception, External Approach (ICD-10-PCS; principal; 2025-02-28)
PROC: 0HQ9XZZ Repair Perineum Skin, External Approach (ICD-10-PCS; 2025-02-28)
DX: O77.0 Labor and delivery complicated by meconium in amniotic fluid (principal); Z37.0 Single live birth; O69.81X0 Labor and delivery complicated by cord around neck, without compression, not applicable or unspecified; O70.0 First degree perineal laceration during delivery; O99.52 Diseases of the respiratory system complicating childbirth; Z3A.39 39 weeks gestation of pregnancy; O90.81 Anemia of the puerperium
CPT/HCPCS: 36415; 59025; 59409; 80053; 80307; 81001; 85025; 85610; 85730; 86780; 86803; 86850; 86900; 86901; 94760; 96360; 96361; 96365; 96366; G0378; J2590